=== PATIENT | female | born 1960 | race Caucasian/White ===

== ENCOUNTER → 2017-07-17 | Outpatient (CLI) | payer MEDICARE ==
[~2017-07-17] MED LIST: GLYBURIDE5 MG PO; LEVEMIR100 UNIT/1 SQ; LIPITOR20 MG; LISINOPRIL10 MG PO; METFORMIN HCL500 M2 PO; WARFARIN SODIUM3 MG PO
--- NOTE | 2017-07-17 13:42 | Diagnostic Imaging Report ---
History:History of stroke. Fall today on the left side Comparison studies:None Technique: Axial images were obtained from the skull base to the vertex. Coronal and sagittal images reconstructed from the axial data. Intravenous contrast: None Findings: Scalp/skull: No abnormalities. Extra-axial spaces: No masses. No fluid collections. Brain sulci: Mildly prominent. Ventricles: Moderate dilation of the right lateral ventricle dilatation. No hydrocephalus. Parenchyma: Right frontal lobe, postcentral gyrus and inferior parietal lobule encephalomalacia secondary to remote MCA stroke. Volume loss at the right cerebral peduncle. Few white matter hypodensities. No masses, hemorrhage or acute cortical vascular insults. Sellar/suprasellar region: No abnormalities. Craniocervical junction: Patent foramen magnum. No Chiari one malformation. Incidental findings: Atherosclerotic calcifications in the carotid siphons . Degenerative changes of the atlantoaxial joint. Partial opacification of the right sphenoid sinus, secondary to inflammatory changes Impression: No acute abnormalities. Chronic findings: 1. Right MCA stroke with encephalomalacia as described above. 2. Mild generalized volume loss. 3. Mild supratentorial white matter small vessel ischemic changes. 4. Inflammatory changes of right sphenoid sinus. Signed by: DR Jason Gallegos M.D. on 07/17/2017 1:39 PM
== END ==
LOC: CT 13:05
PROVIDERS: ATTEND Family Medicine
DX: I63.50 Cerebral infarction due to unspecified occlusion or stenosis of unspecified cerebral artery (principal); Z91.81 History of falling; Z79.01 Long term (current) use of anticoagulants
CPT/HCPCS: 70450

== ENCOUNTER → 2018-02-20 | Outpatient (CLI) | payer MEDICARE ==
[~2018-02-20] MED LIST changes: +IOPAMIDOL 370 MG/ML 200 ML INFUS..BTL INJ ONE; +SODIUM CHLORIDE 0.9% 100 ML 100 ML ONE; +SODIUM CHLORIDE 0.9% 250ML 500 ML ONE; +SODIUM CHLORIDE 0.9% 50ML 0 ML ONE
[2018-02-20 09:38] LABS: CREATININE, SERUM 0.97 mg/dL (0.57-1.11)
--- NOTE | 2018-02-21 10:04 | Diagnostic Imaging Report ---
History: Prior stroke Comparison studies:CT head 07/17/2017 Technique: Axial images were obtained from the thoracic inlet. Coronal and sagittal images reconstructed from the axial data. Intravenous contrast: 100 cc of Omnipaque 300. Dose modulation, iterative reconstruction, and/or weight based adjustment of the mA/kV was utilized to reduce the radiation dose to as low as reasonably achievable. Findings: Percentage of stenosis will be based on the NASCET criteria. Aortic arch and major vessels: Patent. Common origin of the brachiocephalic trunk and left common carotid artery. None calcified atherosclerotic plaque at the brachiocephalic trunk without stenosis. Calcified plaque at the right subclavian artery origin with less than 30% stenosis.. Common carotid arteries: Patent. Calcified and noncalcified plaque at the distal bilateral common carotid arteries with less than 30% stenosis. Right internal carotid artery: Patent. Nonstenotic calcified and noncalcified plaque at the right carotid bulb. Widening of the bulb with surgical clips, related to previous intervention. Calcified plaque at the carotid siphon with less than 30% stenosis. Left internal carotid artery: Patent. Calcified and noncalcified plaque at the left carotid bulb results in 50-65% stenosis. 0.3 cm ulcerated plaque at the anterolateral left carotid bulb. Calcified plaque at the left carotid siphon with less than 30% stenosis. Right vertebral artery: Patent. No abnormalities.Calcified plaque at the right proximal vertebral artery with less than 30% stenosis Left vertebral artery: Patent. Dominant left. Calcified plaque at the left V3 segment without stenosis . Opacification with periosteal thickening at the right sphenoid sinus secondary to chronic sinusitis IMPRESSION: Moderate stenosis at the left carotid bulb secondary to calcified and noncalcified plaque. Small ulcerated plaque in the anterolateral left carotid bulb. The remaining neck arteries shows no hemodynamically significant stenosis. Under direct changes with no stenosis of the right carotid bulb Signed by: DR Jason Gallegos M.D. on 02/21/2018 10:01 AM
== END ==
LOC: CT 08:53
PROVIDERS: ATTEND Internal Medicine
DX: I65.29 Occlusion and stenosis of unspecified carotid artery (principal)
CPT/HCPCS: 36415; 70498; 82565; 84520; 96360; J7050; Q9967

== ENCOUNTER → 2018-04-25 | Outpatient (CLI) | payer MEDICARE, OTHER ==
[~2018-04-25] MED LIST changes: -SODIUM CHLORIDE 0.9% 100 ML 100 ML ONE; -SODIUM CHLORIDE 0.9% 250ML 500 ML ONE; -SODIUM CHLORIDE 0.9% 50ML 0 ML ONE; +SODIUM CHLORIDE 0.9% 50ML 50 ML ONE
[2018-04-25 17:01] LABS: BLOOD UREA NITROGEN 19 mg/dL (7-26); BUN/CREATININE RATIO 21 (6-25); CREATININE, SERUM 0.89 mg/dL (0.57-1.11); EST GLOMERULAR FILTRATION RATE > 60 ML/MIN (60-)
--- NOTE | 2018-04-25 18:00 | Diagnostic Imaging Report ---
EXAM: CT Abdomen and Pelvis WITH contrast INDICATION: ^[id number] ^[id number] ^EPIGASTRIC ABD PAIN;NAUSEA VOMITING COMPARISON: None. TECHNIQUE: Abdomen and pelvis were scanned utilizing a multidetector helical scanner from the lung base to the pubic symphysis after administration of IV contrast. Coronal and sagittal reformations were obtained. Routine protocol was performed. Scan was performed when during portal venous phase. IV CONTRAST: 100 mL of Isovue-370 ORAL CONTRAST: Water RADIATION DOSE: Total DLP: 361.3 mGy*cm Estimated effective dose: (DLP x 0.015 x size factor) mSv COMPLICATIONS: None FINDINGS: LINES and TUBES: None. LOWER THORAX: Unremarkable HEPATOBILIARY: No focal hepatic lesions. No biliary ductal dilation. GALLBLADDER: Few calcified moderate sized stones measuring up to 1 cm. No wall thickening. SPLEEN: No splenomegaly. PANCREAS: No focal masses or ductal dilatation. ADRENALS: No adrenal nodules KIDNEYS/URETERS: Kidneys enhance symmetrically. No hydronephrosis. No cystic or solid mass lesions. No stones. GI TRACT: Diffuse mild dilatation of the small bowel (mainly the jejunum) measuring up to 3.7 cm, with focal areas of mild wall thickening, for example in the left anterior abdomen on series 2, image 38 and focal narrowing on image 45. The large bowel is decompressed. Appendix is not visualized but no inflammatory changes in the right lower quadrant. PELVIC ORGANS/BLADDER: Unremarkable. LYMPH NODES: No lymphadenopathy. VESSELS: Unremarkable. PERITONEUM / RETROPERITONEUM: No free air or fluid. BONES: Unremarkable. SOFT TISSUES: Unremarkable. IMPRESSION: 1. Mild dilatation of the small bowel, mainly the jejunum, with mild focal areas of wall thickening and at least one area of focal narrowing within the left abdomen may represent inflammatory or infectious enteritis. - Recommend follow-up KUB in 24 hours to evaluate developing of small bowel obstruction. 2. Cholelithiasis without cholecystitis. Findings were discussed with Ms. Marcia Grey on 04/25/2018 at 6:05 PM. Signed by: Dr. Courtney Chavez M.D. on 04/25/2018 6:05 PM
== END ==
LOC: CT 15:41
PROVIDERS: ATTEND Family Medicine
DX: R11.2 Nausea with vomiting, unspecified (principal); R10.13 Epigastric pain; R19.4 Change in bowel habit; D72.829 Elevated white blood cell count, unspecified; R74.8 Abnormal levels of other serum enzymes
CPT/HCPCS: 36415; 74177; 82565; 84520; Q9967

== ENCOUNTER → 2019-06-24 | Outpatient (CLI) | payer MEDICARE ==
[~2019-06-24] MED LIST changes: -IOPAMIDOL 370 MG/ML 200 ML INFUS..BTL INJ ONE; -SODIUM CHLORIDE 0.9% 50ML 50 ML ONE
--- NOTE | 2019-06-24 12:32 | Diagnostic Imaging Report ---
Bone density study Clinical History: Osteoporosis screening Bone mineral density measurement Lumbar spine 0.777 gm/cm2 Femoral neck 1.074 gm/cm2 Standard deviation from young adult population (T-score) Lumbar spine -0.6 Femoral neck 0.2 Standard deviation for age adjusted population (Z-score) Lumbar spine 0.6 Femoral neck 1.6 Comments: The alignment of lumbar spine and femoral necks are satisfactory. There is no osteoporosis or osteopenia of the lumbar spine and femoral neck. Diagnostic criteria for osteoporosis BMD: Bone mineral density Normal: BMD measurement less than one standard deviation from young adult population Osteopenia: BMD measurement between 1 and 2.5 standard deviations Osteoporosis: BMD measurement greater than 2.5 standard deviations Severe osteoporosis: Osteoporosis and one or more fragility fractures Signed by: Dr. Chicho Samayoa MD on 06/24/2019 12:30 PM
== END ==
LOC: MAMMO 10:28
PROVIDERS: ATTEND Family Medicine
DX: Z12.31 Encounter for screening mammogram for malignant neoplasm of breast (principal); Z13.820 Encounter for screening for osteoporosis
CPT/HCPCS: 77067; 77080